=== PATIENT | female | born 1995 | race Caucasian/White ===

== ENCOUNTER 2016-04-05 21:14 | Emergency (ER) | payer BC ==
[~2016-04-05] VITALS: Ht 160 cm; Wt 61.1 kg
[2016-04-05 21:18] VITALS: TEMP 37; Ht 160 cm; Wt 61.1 kg
[2016-04-05] MEDS ORDERED: SUMA100T16 PO (21:40)
[2016-04-05] MEDS ORDERED: ETONMIS VAGRING (21:40)
[2016-04-05] MEDS ORDERED: LORA-741 PO (21:40)
[2016-04-05] MEDS ORDERED: NAPR-1169 PO (21:40)
[2016-04-05] MEDS ORDERED: [UNRECOGNIZED DRUG - CODE] PO (21:40)
--- NOTE | 2016-04-05 23:12 | DIAGNOSTIC IMAGING REPORT ---
MANDIBLE MIN 4 VIEWS ROUTINE CLINICAL HISTORY: Temporomandibular joint pain. COMPARISON STUDY: CT neck 03/21/2014. FINDINGS: No fractures within the mandible. The temporomandibular joints are well-maintained. Soft tissues appear unremarkable. IMPRESSION: No radiographic abnormality within the mandible or temporomandibular joints. Electronically signed by: Everett Alejandre M.D. 04/05/2016 11:10 PM Dictated Date/Time: 04/05/2016 11:08 PM
[2016-04-05] MEDS ORDERED: HYDR-5688 PO (23:31)
--- NOTE | 2016-04-05 23:32 | EMERGENCY ROOM VISIT NOTE ---
ED Visit Note First contact with patient: 21:25 CHIEF COMPLAINT: Jaw pain 3 weeks HISTORY OF PRESENT ILLNESS: Patient is a 21-year-old white female who presents the emergency department for evaluation of bilateral jaw pain. She notes generalized pressure and tension in her entire jaw, but sharp pains in bilateral TMJs that have been going on for about 3 weeks. The pain is worse with talking and chewing. She notes some slight swelling in her face. She has tried taking naproxen wearing a mouth guard. She was seen at [facility] and has an appointment with ENT surgery in 2 days. The patient is status post wisdom teeth extraction. She does admit to clenching her teeth at night but denies bruxism. She denies any dental pain or injury. She is status post total thyroidectomy and radiation for thyroid cancer. She is concerned that this could somehow be related to her cancer. She has noted some swollen lymph nodes in her neck and recently had an ultrasound which was apparently benign. REVIEW OF SYSTEMS: Review of systems as per HPI. All other systems reviewed were negative. At least 6 systems reviewed.. PMH: Electronic medical records are reviewed and summarized as above/below. See Problem List. SOCIAL HISTORY: Patient is a college student who lives with friends. Nonsmoker drinks alcohol socially. PHYSICAL EXAM: Vital Signs: Reviewed Nurse's notes. CONSTITUTIONAL: Patient is a well-appearing 21-year-old white female who is awake and alert and in no acute distress. HEENT: Normocephalic, atraumatic. Pupils equal, round, reactive to light and accommodation. EOMs intact without nystagmus. Sclera are anicteric. Tympanic membranes intact, with normal landmarks. External canals are clear. Oral and nasopharynx are clear. Mucous membranes are moist. She has tenderness and slight swelling over the TMJs bilaterally. The jaw opens and closes fully, she does have a click on the left when she opens fully. EMERGENCY DEPARTMENT COURSE: Mandible x-ray was obtained and did not note any obvious bony abnormality. The patient was reassured. 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 She was encouraged to follow up with ENT as she has scheduled. She was advised to stay on an NSAID and was given a small prescription for Sanford to use for severe pain. Soft/liquid diet until symptoms improved. She does not have any evidence for obvious dental pathology or abscess. No trauma to suspect fracture. She does not have any evidence for blastic lesion on x-ray. Problem List Medical Problems: (1) Asthma Status: Chronic (2) Eczema Status: Chronic (3) Fatigue Status: Resolved (4) Hypokalemia Status: Resolved (5) Thyroid cancer Status: Resolved (6) UTI (urinary tract infection) Status: Resolved (7) Weakness Status: Resolved Surgical Problems: (1) H/O thyroidectomy Status: Resolved (2) H/O wisdom tooth extraction Status: Resolved Current/Historical Medications Scheduled Etonogestrel/Ethinyl Estradiol (Nuvaring), 1 EA VAGRING MONTHLY Levothyroxine Sodium (Unithroid), 112 MCG PO DAILY Naproxen (Naprosyn), 500 MG PO DIRECTED Sumatriptan Succinate (Imitrex), 100 MG PO PRN Scheduled PRN Hydrocodone/Acetaminophen 5MG/325MG (Sanford 5MG/325MG), 1-2 TABLETS PO Q4 PRN for Pain Lorazepam (Ativan), 0.5 MG PO Q6H PRN for Anxiety Allergies Coded Allergies: Latex (Verified Allergy, Unknown, skin irritation, 12/26/13) Vital Signs Date Time Temp Pulse Resp B/P Pulse Ox O2 Delivery O2 Flow Rate FiO2 04/06/16 00:01 79 20 121/83 99 04/05/16 21:18 37.0 109 16 150/93 97 Room Air Medications Administered Medications (Trade) Dose Ordered Sig/Diane Route Start Time Stop Time Status Last Admin Dose Admin Acetaminophen/ Hydrocodone Bitart (Sanford 5/325mg Home Pack) 1 homepack UD ONCE PO 04/06/16 00:15 04/06/16 00:16 DC 04/06/16 00:05 1 HOMEPACK Departure Information Impression Primary Impression: Jaw pain Prescriptions Hydrocodone/Acetaminophen 5MG/325MG (Sanford 5MG/325MG) Tab 1-2 TABLETS PO Q4 Y for Pain, #20 TAB For Initial Treatment Prov: Makenzie Fountain PA 04/05/16 Referrals Shani Cortez M.D. (PCP) Patient Instructions My [facility] Additional Instructions Ibuprofen(Motrin, Advil) may be used for fever or pain. Use 600mg every six hours as needed. Take with food. Avoid using more than 2400mg in a 24 hour period. Do not use 2400mg per day for more than three consecutive days without physician direction. Prolonged inappropriate use can lead to stomach upset or ulcers. Hydrocodone/Acetaminophen (Sanford) 5/325 mg: Take 1-2 pills every four hours for breakthrough pain. Avoid alcohol, operating machinery or dangerous equipment, working on ladders or roofs, DRIVING, or situations where being under the influence may be dangerous. It is recommended to use an [id number] stool softener such as Colace, 100mg twice daily while taking this medication to avoid constipation. Soft/liquid diet. Continue current medications. Follow-up with ENT surgery as you have scheduled this week.
[2016-04-06 00:01] VITALS: BP 121/83; PULSE 79; O2SAT 99
[2016-04-06] MEDS ORDERED: NORCO 5/325MG HOME PACK ONE (00:02)
[2016-04-06] MEDS ORDERED: NORCO 5/325MG HOME PACK PO ONE (00:15)
== END 2016-04-06 00:02 | disposition home or self-care (01) ==
LOC: C.EDB 21:15 → C.EDD 04-06 00:02
DX: R68.84 Jaw pain (principal); J45.909 Unspecified asthma, uncomplicated; Z85.850 Personal history of malignant neoplasm of thyroid; Z98.890 Other specified postprocedural states; Z87.440 Personal history of urinary (tract) infections; Z79.899 Other long term (current) drug therapy; Z91.040 Latex allergy status